=== PATIENT | female | born 1955 | race African-American/Black ===

== ENCOUNTER 2018-02-12 21:01 | Emergency (ER) | payer SELFPAY ==
[~2018-02-12] VITALS: Ht 165.1 cm; Wt 62.7 kg
[~2018-02-12 21:01] MED LIST: AMLODIPINE2.5 MG PO; AMOXICILLIN500 MG PO; MUCINEX600 MG PO
[2018-02-12 21:44] LABS: IMMATURE GRANULOCYTES 0.9 % (0.0-1.0); MEAN CELL VOLUME 92.1 fL CALC (80.0-100.0); MEAN CORPUSCULAR HGB 32.1 pG CALC (26.0-32.0); MEAN CORPUSCULAR HGB CONC 34.9 g/L CALC (32.0-36.0); NEUT# 14.63 thou/uL (2.00-7.15); RED BLOOD COUNT 3.92 mill/uL (4.20-5.60); RED CELL DISTRI WIDTH 12.7 % (11.5-15.5)
[2018-02-12 21:45] LABS: HEMATOCRIT 36.1 % (37.0-47.0); HEMOGLOBIN 12.6 g/dl (12.0-16.0)
[2018-02-12 21:50] LABS: ALBUMIN 3.8 g/dL (3.2-5.0); ALKALINE PHOSPHATASE 152 u/l (38-126); ANION GAP 23 (6-22 (CALC)); BILIRUBIN, TOTAL 1.3 mg/dL (0.0-1.4); BUN 14 mg/dL (8-23); BUN/CREATININE RATIO 8 (12-20 (CALC)); CARBON DIOXIDE 19 mmol/l (22-30); CHLORIDE 100 mmol/l (95-108); CREATININE 1.7 mg/dL (0.5-1.0); ETHYL ALCOHOL 173 mg/dl (0-30); GFR 30 ML/MIN (>=60 (CALC)); GFR FOR AFR.AMER. 37 ML/MIN (>=60 (CALC)); POTASSIUM 3.1 mmol/l (3.5-5.1); SGOT/AST 83 u/l (9-36); SGPT/ALT 42 u/l (11-66); SODIUM 139 mmol/l (137-146); TOTAL PROTEIN 8.2 g/dL (6.3-8.2)
[2018-02-12 22:01] LABS: MYOGLOBIN 79 ng/mL (0 - 62)
[2018-02-12 23:21] LABS: URINE BILIRUBIN - DIPSTICK NEGATIVE (NEGATIVE); URINE BLOOD DIPSTICK NEGATIVE (NEGATIVE); URINE CLARITY SL CLOUDY; URINE COLOR YELLOW; URINE GLUCOSE - DIPSTICK NEGATIVE (NEGATIVE); URINE KETONE NEGATIVE (NEGATIVE); URINE LEUK ESTERASE TRACE (NEGATIVE); URINE NITRITE - DIPSTICK NEGATIVE (Negative); URINE PH 5.5 (4.5-8.0); URINE PROTEIN - DIPSTICK TRACE mg/dL (NEG-TRACE); URINE SPECIFIC GRAVITY 1.015
[2018-02-12 23:23] LABS: BARBITURATES NEGATIVE (NEGATIVE); COCAINE NEGATIVE (NEGATIVE); METHADONE NEGATIVE (NEGATIVE); OXCYCODONE NEGATIVE (NEGATIVE); TETRAHYDROCANNABIONOL NEGATIVE (NEGATIVE); TRICYLIC ANTIDEPRESSANTS NEGATIVE (NEGATIVE)
[2018-02-13 01:30] VITALS: BP 103/70
== END 2018-02-13 01:40 | disposition short-term general hospital (02) | DRG 312 ==
LOC: ED 21:01
PROVIDERS: Emergency Medicine
DX: R55 Syncope and collapse (principal); D72.829 Elevated white blood cell count, unspecified; F10.129 Alcohol abuse with intoxication, unspecified; R91.8 Other nonspecific abnormal finding of lung field; B19.20 Unspecified viral hepatitis C without hepatic coma; I10 Essential (primary) hypertension; F17.210 Nicotine dependence, cigarettes, uncomplicated

== ENCOUNTER 2018-03-17 18:46 | Emergency (ER) | payer OTHER ==
[~2018-03-17] VITALS: Ht 165.1 cm; Wt 64.0 kg
[2018-03-17] MEDS ORDERED: MAXZIDE-2537.5 MG/TA PO (19:38)
[2018-03-17] MEDS ORDERED: ONDANSETRON HCL8 MG PO (19:38)
[2018-03-17] MEDS ORDERED: OXYCODONE5 MG PO (19:40)
[2018-03-17 19:46] LABS: ALBUMIN 4.1 g/dL (3.2-5.0); ALKALINE PHOSPHATASE 163 u/l (38-126); BILIRUBIN, TOTAL 1.1 mg/dL (0.0-1.4); BUN 34 mg/dL (8-23); CARBON DIOXIDE 21 mmol/l (22-30); CHLORIDE 93 mmol/l (95-108); SGOT/AST 22 u/l (9-36); SGPT/ALT 27 u/l (11-66); TOTAL PROTEIN 9.2 g/dL (6.3-8.2)
[2018-03-17 19:51] LABS: ANION GAP 21 (6-22 (CALC)); BUN/CREATININE RATIO 9 (12-20 (CALC)); CREATININE 3.9 mg/dL (0.5-1.0); GFR 12 ML/MIN (>=60 (CALC)); GFR FOR AFR.AMER. 14 ML/MIN (>=60 (CALC)); POTASSIUM 5.2 mmol/l (3.5-5.1); SODIUM 130 mmol/l (137-146)
[2018-03-17 19:55] LABS: MYOGLOBIN 92 ng/mL (0 - 62)
[2018-03-17 19:57] LABS: HEMATOCRIT 34.9 % (37.0-47.0); HEMOGLOBIN 11.4 g/dl (12.0-16.0); IMMATURE GRANULOCYTES 3.4 % (0.0-1.0); MEAN CELL VOLUME 94.1 fL CALC (80.0-100.0); MEAN CORPUSCULAR HGB 30.7 pG CALC (26.0-32.0); MEAN CORPUSCULAR HGB CONC 32.7 g/L CALC (32.0-36.0); PLATELET COUNT 331 thou/uL (130-400); RED BLOOD COUNT 3.71 mill/uL (4.20-5.60); RED CELL DISTRI WIDTH 13.4 % (11.5-15.5)
[2018-03-17 19:58] LABS: BAND 11 % (0-8)
[2018-03-17 20:00] LABS: MANUAL DIFFERENTIAL YES
[2018-03-17 20:56] LABS: URINE BLOOD DIPSTICK NEGATIVE (NEGATIVE); URINE GLUCOSE - DIPSTICK NEGATIVE (NEGATIVE); URINE KETONE NEGATIVE (NEGATIVE); URINE LEUK ESTERASE NEGATIVE (NEGATIVE); URINE PH 5.5 (4.5-8.0); URINE PROTEIN - DIPSTICK TRACE mg/dL (NEG-TRACE); URINE SPECIFIC GRAVITY 1.025
[2018-03-17 21:01] LABS: URINE BILIRUBIN - DIPSTICK NEGATIVE (NEGATIVE); URINE CLARITY CLOUDY; URINE COLOR AMBER; URINE NITRITE - DIPSTICK POSITIVE (Negative)
[2018-03-17 21:03] LABS: URINE AMORPH SEDIMENT MANY hpf (NONE-FEW); URINE BACTERIA RARE hpf; URINE RBC 0-2 RBC/hpf (0-5); URINE SQUAMOUS EPITHELIAL CELL FEW EPI/hpf (0-FEW); URINE WBC 0-2 WBC/hpf (0-5)
[2018-03-17 22:00] VITALS: BP 96/68
== END 2018-03-17 22:05 | disposition short-term general hospital (02) | DRG 684 ==
LOC: ED 18:46
PROVIDERS: Emergency Medicine
PROC: 0T9B70Z Drainage of Bladder with Drainage Device, Via Natural or Artificial Opening (ICD-10-PCS; principal; 2018-03-17)
DX: N17.9 Acute kidney failure, unspecified (principal); E86.0 Dehydration; D72.829 Elevated white blood cell count, unspecified; I10 Essential (primary) hypertension; B19.20 Unspecified viral hepatitis C without hepatic coma; F17.210 Nicotine dependence, cigarettes, uncomplicated; Z85.118 Personal history of other malignant neoplasm of bronchus and lung